=== PATIENT | female | born 1960 ===

== ENCOUNTER 2023-10-05 11:15 | Inpatient (IN) | payer OTHER ==
[~2023-10-05] VITALS: Ht 154.9 cm; Wt 61.2 kg
[2023-10-05] MEDS ORDERED: TOPROL XL100 M1 PO (16:26)
[2023-10-05] MEDS ORDERED: CRESTOR10 MG PO (16:27)
[2023-10-05] MEDS ORDERED: NORVASC2.5 MG PO (16:27)
[2023-10-05] MEDS ORDERED: AMITRIPTYLINE H25 MG PO (16:28)
[2023-10-05] MEDS ORDERED: CHILDREN'S ASPI81 MG PO (16:29)
[2023-10-05] MEDS ORDERED: IRBESARTAN150 MG PO (16:29)
[2023-10-05] MEDS ORDERED: SYNTHROID100 MCG PO (16:29)
[2023-10-10 19:21] LABS: HEMATOCRIT 34.9 % (36.0-45.00); HEMOGLOBIN 12.1 g/dL (12.0-15.00); MEAN CELL VOLUME 85.6 fL (80.00-100.00); MEAN CORPUSCULAR HEMOGLOBIN 29.8 pg (27.00-32.0); MEAN CORPUSCULAR HGB CONC 34.8 g/dl (32.0-36.0); PLATELET COUNT 146 K/uL (150-450); RED BLOOD COUNT 4.07 M/uL (4.00-6.00)
[2023-10-11 06:18] LABS: HEMATOCRIT 31.6 % (36.0-45.00); HEMOGLOBIN 11.3 g/dL (12.0-15.00); MEAN CELL VOLUME 85.8 fL (80.00-100.00); MEAN CORPUSCULAR HEMOGLOBIN 30.6 pg (27.00-32.0); MEAN CORPUSCULAR HGB CONC 35.7 g/dl (32.0-36.0); PLATELET COUNT 139 K/uL (150-450); RED BLOOD COUNT 3.69 M/uL (4.00-6.00); RED CELL DISTRIBUTION WIDTH 13.7 % (11.5-14.5)
[2023-10-11 07:03] LABS: ALBUMIN 3.2 gm/dL (3.4-5.0); CALCIUM 8.3 mg/dL (8.5-10.1); CREATININE SERUM 0.87 mg/dL (0.55-1.02); GFR 66.19; MAGNESIUM 1.8 mg/dL (1.8-2.4); PHOSPHOROUS 3.9 mg/dL (2.5-4.9); POTASSIUM 3.82 mEq/L (3.5-5.1)
[2023-10-11] MEDS ORDERED: SYNTHROID112 MCG (10:27)
[2023-10-12 07:50] LABS: HEMATOCRIT 29.9 % (36.0-45.00); HEMOGLOBIN 10.4 g/dL (12.0-15.00); MEAN CELL VOLUME 85.4 fL (80.00-100.00); MEAN CORPUSCULAR HEMOGLOBIN 29.6 pg (27.00-32.0); MEAN CORPUSCULAR HGB CONC 34.6 g/dl (32.0-36.0); RED CELL DISTRIBUTION WIDTH 14.1 % (11.5-14.5)
[2023-10-12 07:54] LABS: PLATELET COUNT 126 K/uL (150-450)
[2023-10-12 08:19] LABS: MANUAL PLATELET COUNT 162
[2023-10-12 08:39] LABS: CALCIUM 8.4 mg/dL (8.5-10.1); CREATININE SERUM 0.59 mg/dL (0.55-1.02); GFR 103.62; POTASSIUM 3.58 mEq/L (3.5-5.1)
[2023-10-12 08:44] LABS: PHOSPHOROUS 1.7 mg/dL (2.5-4.9)
== END 2023-10-12 10:17 | disposition home or self-care (01) | DRG 331 ==
LOC: SURH 11:15 → O/R 10-10 09:53 → SURH 10-10 09:53
PROVIDERS: Internal Medicine Geriatric Medicine; ADMIT Colon & Rectal Surgery; ATTEND Colon & Rectal Surgery
PROC: 0DBP4ZZ Excision of Rectum, Percutaneous Endoscopic Approach (ICD-10-PCS; 2023-10-10)
PROC: 0DBN4ZZ Excision of Sigmoid Colon, Percutaneous Endoscopic Approach (ICD-10-PCS; principal; 2023-10-10 10:45)
DX: K57.20 Diverticulitis of large intestine with perforation and abscess without bleeding (principal); N73.6 Female pelvic peritoneal adhesions (postinfective)